=== PATIENT | female | born 1955 | race Caucasian/White ===

== ENCOUNTER 2021-11-30 13:00 | Outpatient (RCR) | payer BC, SELFPAY | END 2022-06-12 16:22 | disposition home or self-care (01) | PROVIDERS: PCP Internal Medicine; Visit Provider Physician Assistant | DX: M25.561 Pain in right knee (principal); Z51.89 Encounter for other specified aftercare | CPT/HCPCS: 97110; 97112; 97116; 97140; 97162 ==

== ENCOUNTER 2022-03-16 12:17 | Outpatient (REF) | payer BC, SELFPAY ==
[2022-03-16 12:47] LABS: Basophils Absolute Auto 0.02 K/uL (0.00-0.30); Basophils Percent Auto 0.4 % (0.0-3.0); Eosinophils Absolute Auto 0.08 K/uL (0.00-0.50); Eosinophils Percent Auto 1.8 % (0.0-7.0); Hematocrit 39.8 % (33.0-51.0); Hemoglobin* 12.9 gm/dL (12.0-16.0); Lymphocytes Percent Auto 24.4 % (20-44); Mean Corpuscular HGB Conc 32 gm/dL (32-36); Mean Corpuscular Hemoglobin 31 pg (26-34); Mean Corpuscular Volume 94 fL (80-100); Monocytes Percent Auto 10.4 % (0.0-11.0); Neutrophils Absolute Auto 2.84 K/uL (1.7-7.0); Platelet Count* 308 K/uL (140-440); RDW Coefficient of Variation % 13.3 % (11.5-15.5); Red Blood Count 4.23 m/uL (4.00-5.20); White Blood Count* 4.51 K/uL (4.50-11.00)
[2022-03-16 12:48] LABS: Slide Review Reflex No
[2022-03-16 13:06] LABS: Aspartate Amino Transferase* 23 U/L (12-35); Creatinine* 0.6 mg/dL (0.5-1.5); Estimated Glomerular Filt Rate 100 ml/min
== END 2022-03-16 12:18 | disposition home or self-care (01) ==
LOC: NPINS 12:17
PROVIDERS: PCP Internal Medicine; Visit Provider Nurse Practitioner
DX: M06.9 Rheumatoid arthritis, unspecified (principal)
CPT/HCPCS: 82565; 84450; 85025

== ENCOUNTER 2022-05-01 11:00 | Outpatient (REF) | payer BC, SELFPAY ==
[2022-05-01 11:51] LABS: Basophils Percent Auto 0.5 % (0.0-3.0); Hematocrit 40.6 % (33.0-51.0); Hemoglobin* 12.9 gm/dL (12.0-16.0); Immature Granulocytes Pct Auto 0.7 %; Lymphocytes Percent Auto 22.4 % (20-44); Mean Corpuscular HGB Conc 32 gm/dL (32-36); Mean Corpuscular Hemoglobin 30 pg (26-34); Mean Corpuscular Volume 94 fL (80-100); Monocytes Percent Auto 9.2 % (0.0-11.0); Neutrophils Percent Auto 65.2 % (42.0-72.0); Platelet Count* 285 K/uL (140-440); RDW Coefficient of Variation % 13.5 % (11.5-15.5); Red Blood Count 4.31 m/uL (4.00-5.20); White Blood Count* 4.02 K/uL (4.50-11.00)
[2022-05-01 12:07] LABS: Aspartate Amino Transferase* 28 U/L (12-35); Creatinine* 0.6 mg/dL (0.5-1.5); Estimated Glomerular Filt Rate 100 ml/min
[2022-05-01 12:11] LABS: Slide Review Reflex No
[2022-05-01 12:22] LABS: C Reactive Protein* < 0.5 mg/dL (0.5-1.0)
[2022-05-01 12:44] LABS: Erythrocyte SedimentationRate* 3 mm/hr (2-20)
== END 2022-05-01 11:01 | disposition home or self-care (01) ==
LOC: NPINS 11:00
PROVIDERS: PCP Internal Medicine; Visit Provider Nurse Practitioner
DX: Z00.00 Encounter for general adult medical examination without abnormal findings (principal); M81.0 Age-related osteoporosis without current pathological fracture; I25.10 Atherosclerotic heart disease of native coronary artery without angina pectoris; Z13.6 Encounter for screening for cardiovascular disorders
CPT/HCPCS: 80061; 82306; 82565; 84450; 85025; 85651; 86140

== ENCOUNTER 2022-12-11 13:35 | Outpatient (RCR) | payer BC, SELFPAY ==
[2022-12-11 13:55] LABS: Basophils Percent Auto 0.7 % (0.0-3.0); Eosinophils Percent Auto 1.8 % (0.0-7.0); Hematocrit 41.7 % (33.0-51.0); Hemoglobin* 13.2 gm/dL (12.0-16.0); Lymphocytes Percent Auto 21.9 % (20-44); Mean Corpuscular HGB Conc 32 gm/dL (32-36); Mean Corpuscular Hemoglobin 30 pg (26-34); Mean Corpuscular Volume 96 fL (80-100); Monocytes Percent Auto 6.9 % (0.0-11.0); Neutrophils Percent Auto 68.7 % (42.0-72.0); Platelet Count* 279 K/uL (140-440); RDW Coefficient of Variation % 12.8 % (11.5-15.5); Red Blood Count 4.35 m/uL (4.00-5.20); White Blood Count* 4.47 K/uL (4.50-11.00)
[2022-12-11 13:59] LABS: Slide Review Reflex No
[2022-12-11 14:24] LABS: Creatinine* 0.6 mg/dL (0.5-1.5); Estimated Glomerular Filt Rate 100 ml/min
[2022-12-11 14:25] LABS: Aspartate Amino Transferase* 31 U/L (12-35)
== END 2023-11-19 08:45 | disposition home or self-care (01) ==
LOC: LAB 13:35
PROVIDERS: PCP Internal Medicine; Visit Provider Nurse Practitioner
DX: M06.9 Rheumatoid arthritis, unspecified (principal)
CPT/HCPCS: 36415; 82565; 84450; 85025

== ENCOUNTER 2023-03-22 09:01 | Outpatient (REF) | payer BC, SELFPAY ==
[2023-03-22 09:26] LABS: Basophils Absolute Auto 0.03 K/uL (0.00-0.30); Basophils Percent Auto 0.5 % (0.0-3.0); Eosinophils Absolute Auto 0.06 K/uL (0.00-0.50); Eosinophils Percent Auto 1.1 % (0.0-7.0); Hematocrit 42.6 % (33.0-51.0); Hemoglobin* 13.9 gm/dL (12.0-16.0); Immature Granulocytes Abs Auto 0.01 K/uL (0.00-0.30); Immature Granulocytes Pct Auto 0.2 %; Lymphocytes Absolute Auto 1.46 K/uL (0.90-2.90); Lymphocytes Percent Auto 25.7 % (20-44); Mean Corpuscular HGB Conc 33 gm/dL (32-36); Mean Corpuscular Hemoglobin 31 pg (26-34); Mean Corpuscular Volume 94 fL (80-100); Monocytes Percent Auto 10.9 % (0.0-11.0); Neutrophils Percent Auto 61.6 % (42.0-72.0); Platelet Count* 329 K/uL (140-440); RDW Coefficient of Variation % 13.2 % (11.5-15.5); Red Blood Count 4.52 m/uL (4.00-5.20); White Blood Count* 5.68 K/uL (4.50-11.00)
[2023-03-22 09:30] LABS: Alanine Aminotransferase* 23 U/L (4-35); Aspartate Amino Transferase* 29 U/L (12-35); Creatinine* 0.6 mg/dL (0.5-1.5); Estimated Glomerular Filt Rate 100 ml/min; Slide Review Reflex No
== END 2023-03-22 09:02 | disposition home or self-care (01) ==
LOC: NPINS 09:01
PROVIDERS: PCP Internal Medicine; Visit Provider Nurse Practitioner
DX: M06.9 Rheumatoid arthritis, unspecified (principal)
CPT/HCPCS: 82565; 84450; 84460; 85025

== ENCOUNTER 2023-08-15 09:32 | Outpatient (REF) | payer BC, SELFPAY ==
[2023-08-15 09:56] LABS: Basophils Percent Auto 0.5 % (0.0-3.0); Hematocrit 40.9 % (33.0-51.0); Hemoglobin* 13.3 gm/dL (12.0-16.0); Lymphocytes Percent Auto 22.3 % (20-44); Mean Corpuscular HGB Conc 33 gm/dL (32-36); Mean Corpuscular Hemoglobin 31 pg (26-34); Mean Corpuscular Volume 95 fL (80-100); Monocytes Percent Auto 9.2 % (0.0-11.0); Platelet Count* 269 K/uL (140-440); RDW Coefficient of Variation % 12.7 % (11.5-15.5); Red Blood Count 4.29 m/uL (4.00-5.20); White Blood Count* 3.91 K/uL (4.50-11.00)
[2023-08-15 10:00] LABS: Slide Review Reflex No
[2023-08-15 10:01] LABS: Alanine Aminotransferase* 22 U/L (4-35); Aspartate Amino Transferase* 32 U/L (12-35); Creatinine* 0.6 mg/dL (0.5-1.5); Estimated Glomerular Filt Rate 100 ml/min
== END 2023-08-15 09:33 | disposition home or self-care (01) ==
LOC: NPINS 09:32
PROVIDERS: PCP Internal Medicine; Visit Provider Nurse Practitioner
DX: M06.9 Rheumatoid arthritis, unspecified (principal)
CPT/HCPCS: 80061; 82306; 82565; 84450; 84460; 85025

== ENCOUNTER 2024-02-18 10:30 | Outpatient (RCR) | payer BC, SELFPAY ==
[2024-02-18 10:59] LABS: Hematocrit* 40.3 % (33.0-51.0); Hemoglobin* 12.9 gm/dL (12.0-16.0); Immature Granulocytes Abs Auto 0.01 K/uL (0.00-0.30); Immature Granulocytes Pct Auto 0.2 %; Lymphocytes Absolute Auto 1.16 K/uL (0.90-2.90); Mean Corpuscular HGB Conc 32 gm/dL (32-36); Mean Corpuscular Hemoglobin 31 pg (26-34); Mean Corpuscular Volume 97 fL (80-100); RDW Coefficient of Variation % 12.9 % (11.5-15.5); Red Blood Count* 4.17 m/uL (4.00-5.20); White Blood Count* 5.04 K/uL (4.50-11.00)
[2024-02-18 11:00] LABS: Creatinine* 0.7 mg/dL (0.5-1.5); Estimated Glomerular Filt Rate 95 ml/min; Slide Review Reflex No
[2024-02-18 11:01] LABS: Alanine Aminotransferase* 22 U/L (4-35); Aspartate Amino Transferase* 30 U/L (12-35)
== END 2025-01-18 | disposition home or self-care (01) ==
LOC: NPINS 10:30
PROVIDERS: PCP Internal Medicine; Visit Provider Nurse Practitioner
DX: M06.9 Rheumatoid arthritis, unspecified (principal)
CPT/HCPCS: 82565; 84450; 84460; 85025

== ENCOUNTER 2024-05-08 09:32 | Outpatient (CLI) | payer BC, SELFPAY ==
[2024-05-08 10:51] LABS: Basophils Absolute Auto 0.02 K/uL (0.00-0.30); Basophils Percent Auto 0.3 % (0.0-3.0); Eosinophils Absolute Auto 0.08 K/uL (0.00-0.50); Eosinophils Percent Auto 1.4 % (0.0-7.0); Hematocrit 43.1 % (33.0-51.0); Hemoglobin* 13.9 gm/dL (12.0-16.0); Lymphocytes Percent Auto 19.5 % (20-44); Mean Corpuscular HGB Conc 32 gm/dL (32-36); Mean Corpuscular Hemoglobin 31 pg (26-34); Mean Corpuscular Volume 95 fL (80-100); Monocytes Percent Auto 7.8 % (0.0-11.0); Neutrophils Absolute Auto 4.18 K/uL (1.7-7.0); Platelet Count* 325 K/uL (140-440); RDW Coefficient of Variation % 13.1 % (11.5-15.5); Red Blood Count 4.52 m/uL (4.00-5.20); White Blood Count* 5.89 K/uL (4.50-11.00)
[2024-05-08 11:03] LABS: Slide Review Reflex No
[2024-05-08 11:20] LABS: Alanine Aminotransferase* 21 U/L (4-35); Aspartate Amino Transferase* 29 U/L (12-35); Creatinine* 0.6 mg/dL (0.5-1.5); Estimated Glomerular Filt Rate 99 ml/min
== END 2024-05-08 09:33 | disposition home or self-care (01) ==
LOC: NPINS 09:36
PROVIDERS: PCP Internal Medicine; Visit Provider Nurse Practitioner
DX: M06.9 Rheumatoid arthritis, unspecified (principal)
CPT/HCPCS: 82565; 84450; 84460; 85025

== ENCOUNTER 2024-05-08 09:40 | Outpatient (CLI) | payer BC, SELFPAY ==
[2024-05-10 01:41] LABS: HPV Source Cervical; HPV, High Risk by TMA Not Detected
[2024-05-15 14:04] LABS: Pap Test Reviewed by Path Done
== END 2024-05-08 09:41 | disposition home or self-care (01) ==
PROVIDERS: PCP Internal Medicine; Visit Provider Physician Assistant
DX: Z12.4 Encounter for screening for malignant neoplasm of cervix (principal); Z11.51 Encounter for screening for human papillomavirus (HPV)
CPT/HCPCS: 87624; 87625; 88141; 88142

== ENCOUNTER 2024-09-25 08:16 | Outpatient (CLI) | payer BC, SELFPAY ==
[2024-09-25 11:09] LABS: Hematocrit 41.2 % (33.0-51.0); Hemoglobin* 13.5 gm/dL (12.0-16.0); Immature Granulocytes Abs Auto 0.00 K/uL (0.00-0.30); Immature Granulocytes Pct Auto 0.0 %; Mean Corpuscular HGB Conc 33 gm/dL (32-36); Mean Corpuscular Hemoglobin 31 pg (26-34); Mean Corpuscular Volume 95 fL (80-100); RDW Coefficient of Variation % 12.7 % (11.5-15.5); Red Blood Count 4.35 m/uL (4.00-5.20); White Blood Count* 4.39 K/uL (4.50-11.00)
[2024-09-25 11:28] LABS: Alanine Aminotransferase* 20 U/L (4-35); Aspartate Amino Transferase* 27 U/L (12-35); Creatinine* 0.7 mg/dL (0.5-1.5); Estimated Glomerular Filt Rate 95 ml/min
[2024-09-25 11:31] LABS: Lymphocytes Absolute Auto 0.90 K/uL (0.90-2.90); Slide Review Reflex No
== END 2024-09-25 08:17 | disposition home or self-care (01) ==
LOC: NPINS 08:17
PROVIDERS: PCP Internal Medicine; Visit Provider Nurse Practitioner
DX: M06.9 Rheumatoid arthritis, unspecified (principal)
CPT/HCPCS: 82565; 84450; 84460; 85025